=== PATIENT | male | born 1955 | race Caucasian/White ===

== ENCOUNTER 2019-04-05 10:28 | Emergency (ER) | payer OTHER ==
[~2019-04-05] VITALS: Ht 172.7 cm; Wt 87.1 kg
[2019-04-05 10:42] VITALS: BP 130/82; Ht 172.7 cm; Wt 87.1 kg
== END 2019-04-05 11:30 | disposition home or self-care (01) ==
LOC: ED 10:28
DX: H66.92 Otitis media, unspecified, left ear (principal); H60.92 Unspecified otitis externa, left ear; E78.00 Pure hypercholesterolemia, unspecified